=== PATIENT | male | born 1950 | race Native Hawaiian/Other Pacific Islander ===

== ENCOUNTER → 2022-01-03 | Emergency (ER) | payer OTHER ==
[~2022-01-03] VITALS: Ht 182.9 cm; Wt 80.7 kg
[~2022-01-03] MED LIST: GERI-LANTA PO; HALO5TAB10 PO; INSULIN AS100 UNIT/2 SC; KLOR-CON M2020 MEQ PO; LOPERAMIDE2 MG PO; MAGNESIUM OXID400 M1 PO; MAGNSUS68 PO; MEMANTINE HYDROC5 MG PO; PANTOPRAZOLE 40MG TA PO; STOOL SOFTNR100 MG PO; VALSARTAN80 MG PO
[2022-01-03 21:40] VITALS: BP 127/50; TEMP 98.5
[2022-01-03 22:06] LABS: PLATELET COUNT 182 K/uL (142-355)
[2022-01-03 22:12] LABS: POTASSIUM 3.9 mmol/L (3.6-5.2)
== END ==
LOC: ED 21:30
PROVIDERS: Emergency Medicine
DX: F03.91 Unspecified dementia, unspecified severity, with behavioral disturbance (principal); R45.1 Restlessness and agitation; E86.0 Dehydration; Z91.83 Wandering in diseases classified elsewhere; Z11.52 Encounter for screening for COVID-19; Z04.6 Encounter for general psychiatric examination, requested by authority
CPT/HCPCS: 36415; 80053; 81002; 85027; 87635; 93005; 99283; U0003